=== PATIENT | female | born 1950 | race Caucasian/White ===

== ENCOUNTER → 2018-10-01 | Outpatient (CLI) | payer OTHER | LOC: M.LAB 05:02 | DX: Z01.812 Encounter for preprocedural laboratory examination (principal); Z79.899 Other long term (current) drug therapy ==

== ENCOUNTER 2019-07-11 10:39 | Inpatient (IN) | payer OTHER ==
[~2019-07-11] VITALS: Ht 165.1 cm; Wt 56.7 kg
[2019-07-11 10:44] VITALS: BP 120/66
[2019-07-11] MEDS ORDERED: MICROZIDE12.5 MG PO (10:50)
[2019-07-11] MEDS ORDERED: LISINOPRIL2.5 MG PO ×2 (10:50→15:54)
[2019-07-11] MEDS ORDERED: SIMVASTATIN80 MG PO (10:50)
[2019-07-11] MEDS ORDERED: SERTRALINE HCL100 MG PO (10:50)
[2019-07-11 11:03] LABS: ABSOLUTE EOSINOPHILS 0.6 thou/uL (0.0-0.7); ABSOLUTE LYMPHOCYTES 1.4 thou/uL (0.8-5.3); ABSOLUTE MONOCYTES 0.9 thou/uL (0.0-1.2); ABSOLUTE NEUTROPHILS 5.8 thou/uL (1.6-8.1); BASOPHILS 0.3 %; EOSINOPHILS 6.5 %; HEMATOCRIT 38.2 % (37.0-47.0); HEMOGLOBIN 13.1 gm/dL (12.0-15.0); LYMPHOCYTES 16.5 %; MCH 32.7 pg (26.0-34.0); MCHC 34.3 g/dL (28.0-37.0); MCV 95.3 fL (80.0-100.0); MONOCYTES 9.8 %; MPV 6.8 fl. (7.2-11.1); NUCLEATED RBCS 0 /100WBC; PLATELET COUNT* 262 thou/uL (150-400); POLYS 66.9 %; RDW-CV 13.7 % (10.5-14.5); WBC 8.7 thou/uL (4.0-11.0)
[2019-07-11 11:13] LABS: CALCIUM 8.7 mg/dL (8.5-10.1); CREATININE 1.2 mg/dL (0.6-1.3); POTASSIUM 3.5 mmol/L (3.5-5.1)
[2019-07-11 11:14] LABS: APTT 25.2 Seconds (25.0-31.3); INR 0.9; PROTIME 9.4 Seconds (9.20-11.50)
[2019-07-11 11:27] LABS: ALBUMIN 3.3 g/dL (3.4-5.0); CK-MB MASS 20.1 ng/mL (<0.5-3.6); MAGNESIUM 1.6 mg/dL (1.8-2.4); TOTAL BILIRUBIN 0.1 mg/dL (<0.1-1.0); TOTAL PROTEIN 7.1 g/dL (6.4-8.2)
[2019-07-11 13:25] VITALS: BP 119/70
[2019-07-11 13:50] VITALS: BP 109/80
[2019-07-11 14:25] LABS: CHOLESTEROL 160 mg/dL (<200); HDL CHOLESTEROL 60 mg/dL (>40); LDL CHOLESTEROL 88 mg/dL (<100); TC:HDL 2.7 Ratio (Not establshd); TRIGLYCERIDE 63 mg/dL (<150); VLDL 13 mg/dL (<40)
[2019-07-11 14:27] LABS: SERUM ASSESSMENT Clear
--- NOTE | 2019-07-11 14:30 | NUR ---
RECEIVED REPORT FROM ALEXUS IN ER. PT ARRIVED TO TELE FLOOR AROUND 1350. PT A&O X4. VSS. SODIUM METHYLATE OPERATOR PLACED TRACING SR. ADMISSION ASSESSMENT, EDUCATION AND HISTORY COMPLETED CHARTED. PT ORIENTED TO ROOM, BED AND CALL LIGHT - PT COMMUNICATES UNDERSTANDING. DR MIXON IN ROOM TALKING WITH PT DURING ADMISSION ABOUT NEED FOR CARDIAC CATH. PT AGREEABLE. CONSENT OBTAINED AND SIGNED. MEDICATIONS RECONCILED. PT DENIES PAIN AT THIS TIME. PT LEFT WITH CAR MANAGER NURSES TO GO DOWN TO CAR MANAGER AROUND 1430.
[2019-07-11] MEDS ORDERED: HYDROCHLOROTHIA25 M1 PO (15:55)
[2019-07-11] MEDS ORDERED: LIPITOR 20 MG T20 M1 PO (15:55)
[2019-07-11] MEDS ORDERED: DELTA D310 MCG PO (15:57)
[2019-07-11] MEDS ORDERED: MAGNESIUM250 M1 PO (15:58)
[2019-07-11] MEDS ORDERED: KLOR-CON M2020 MEQ PO (15:59)
[2019-07-11] MEDS ORDERED: EXCEDRIN CAPLE1 EACH PO (15:59)
[2019-07-11] MEDS ORDERED: NEXIUM20 MG PO (16:00)
[2019-07-11 17:14] LABS: BE -12.3 mmol/L (-2 to +3); PO2 82.6 mmHg (75.0-100.0)
[2019-07-11 17:16] LABS: PCO2 66.4 mmHg (35.0-45.0); pH 7.061 (7.340-7.450)
--- NOTE | 2019-07-11 19:57 | EKG ---
[place] [address] ELECTROCARDIOGRAM REPORT Name: PEDERSONCAROL Deedee Room: [address] ADM IN .R.#: [id number] Admission: 07/11/19 Attend Phys: Chao Partida MD Discharge: Date of : 50 Report #: [id number] THIS REPORT FOR: //name// [facility] ED Test Date: 2019-07-11 Test Time: 10:47:58 Pat Name: CAROL PEDERSON Department: Room: [facility] Gender: F Special Events Fundraiser: : 1950 Requested By: Brody Mobley Order Number: [id number] MD: Sharath Schumacher Measurements Intervals [place] Rate: 86 P: 59 MN: 136 QRS: 48 QRSD: 89 T: 181 QT: 392 QTc: 469 Interpretive Statements Sinus rhythm Probable left atrial enlargement Consider RVH or PMI w/ secondary repol abnrm Repol abnrm suggests ischemia, lateral leads Baseline wander in lead(s) I,III,aVL Compared to ECG 07/16/2008 14:44:04 Myocardial infarct finding now present Early repolarization now present Possible ischemia now present Electronically Signed On 07-11-2019 19:56:51 ROTARY DRILL OPERATOR by Sharath Schumacher [email or web address] <ELECTRONICALLY SIGNED> By: Sharath Schumacher MD, FAC 07/11/191955 46 46 Sharath Schumacher MD, FAC /EPI
--- NOTE | 2019-07-11 19:58 | NUR ---
PT ARRIVED TO TELE FLOOR FROM SERVER DEVELOPER AROUND 1800. RECEIVED REPORT FROM JAYMIE - PT WAS CODED AND AT 1739. PAPERWORK FILLED OUT WITH CHARGE NURSE WALTER AND PLACED IN CHART. FAMILY AT BEDSIDE FOR A TIME. FAMILY TO CALL NURSING WITH HOME INFORMATION THIS EVENING. [facility] CALLED - PT CANDIDATE FOR ORGAN DONATION. PT PLACED ON ICE AT 1830. BELONGINGS SENT HOME WITH FAMILY. PT'S TEETH REMAIN WITH PT.
--- NOTE | 2019-07-12 00:50 | NUR ---
BODY HAS BEEN ON ICE AND COOLING BLANKET, HOB ELEVATED 30 DEGREES. DENTURES PLACED IN MOUTH EARLIER. ID VERIFIED. REMOVED BY TRANSPORT COMPANY FOR TISSUE REMOVAL.
[2019-07-12 00:56] VITALS: BP 109/80
--- NOTE | 2019-07-12 10:32 | CARD ---
[address] [address] CARDIAC CATH REPORT Name: CAROL PEDERSON Room: [address]#: [id number] Admission: 07/11/19 Attend Phys: Chao Partida MD Discharge: 07/12/19 Date of : 50 Report #: [id number] THIS REPORT FOR: //name// APPROVED REPORT Study performed: 07/11/2019 14:36:29 Patient Details Patient Status: In-Patient Room #: 203 The patient is a 69 year-old female Event Personnel Paco Schmitt RTR Monitor, Joanne Darden RN RN, Shanna Hannon RN RN, Aurelia Saucedo RTR Bri Drummond John Paper Cutter Operator Procedures Performed Left Heart Cath Coronaries, Bypass Grafts 1602119 LHCCORCABG Atherectomy w/wo Plasty Sgl RCA [id number] ATHSINGLE DANNY Place w/wo Plasty Single LAD 543099 Indication Non-STEMI Risk Factors Peripheral Vascular Disease, Hypercholesterolemia, Hypertension Previous Procedures/Diagnoses Previous CABGPrevious PCI Admission/Lab Medications/Medications given during procedure Angiomax bolus and infusion Procedure Narrative The patient was brought urgently to the Cardiac Catheterization Laboratory and was prepped and draped in a sterile manner. The right femoral was infiltrated with 2% Lidocaine subcutaneous anesthesia. A 6fr Ultimum Sheath sheath was inserted into the right femoral artery. Coronary angiography was performed using coronary diagnostic catheters. The right coronary system was accessed and visualized with a Diagnostic 6Fr JR4 catheter. The left coronary system was accessed and visualized with a Diagnostic 6Fr JL4 catheter. The left ventricle was accessed and visualized with a Diagnostic 6Fr Pigtail catheter. Left ventricular/Aortic Valve gradient assessed via catheter pullback. Left ventric[place] [address] CARDIAC CATH REPORT Name: CAROL PEDERSON Room: [address]#: [id number] Admission: 07/11/19 Attend Phys: Chao Partida MD Discharge: 07/12/19 Date of : 50 Report #: [id number] projection. Intraoperative Conscious Sedation Fentanyl 25 mcg Versed 2 mg Fluoro Time: 34.8 minutes Dose: DAP 275206 cGycm2 2421.94 mGy Contrast Type and Amount: Visipaque 360 ml [place] Artery Percent Stenosis #1 atretic SOLORZANO graft #2 patent saphenous vein graft to a small marginal branch of the circumflex with sequential 90% proximalmid graft stenosis Diagnostic Cath Left Main 40% distal narrowing LAD 90% Calcified proximalmid LAD stenosis Circumflex 100% proximal occlusion Right Coronary 90% heavily calcified mid right coronary stenosis with 80% stenosis of a prominent posterolateral branch of the distal right coronary artery Left Ventriculography The left ventricle is normal in size with contractility. The left ventricular ejection fraction is estimated to be 45%. Left ventricular wall motion abnormalities are present. There is no mitral insufficiency. Anterolateral hypokinesis is noted Hemodynamics The aortic pressure is 88/43 mmHg with a mean of 57 mmHg. The left ventricular pressure is 83/-1 mmHg with a mean of mmHg. The left ventricular end diastolic pressure is 4 mmHg. There was no gradient across the aortic valve upon pullback. PCI Technique Lesion Anticoagulation was achieved with Angiomax. Percutaneous coronary intervention was performed on the mid right coronary artery. The lesion stenosis prior to intervention was 90% with YOVANNY 3 flow. A 6F JR 4.0 Guide Catheter was used to engage the ostium. A IG: ProwaterFlex 180CM Interventional Guidewire was used to cross the lesion. BALLOON DILATION A Balloon catheter Trek RX 2.5 X 12 [place] [address] CARDIAC CATH REPORT Name: CAROL PEDERSON Room: [address]#: [id number] Admission: 07/11/19 Attend Phys: Chao Partida MD Discharge: 07/12/19 Date of : 50 Report #: [id number] 14.00atm for 17seconds. Additional Inflation: 18.00atm for 20seconds. Additional Inflation: 24-28atm for 20seconds. 2.0 x 10 mm angiosculpt inflated to 20-22 vaishali Final angiography reveals 80 % stenosis with YOVANNY 3 flow. COMMENTS I was unable to successfully dilate the heavily calcified mid right coronary stenosis. The patient developed local intimal disruption distal to the heavily calcified stenosis suggesting a dissection plane. At this point, I felt it was not lopez to proceed with orbital or rotational atherectomy . PCI Technique Lesion 2 Percutaneous Coronary Intervention was performed on the proxmid left anterior descending. The lesion stenosis prior to intervention was 90% with YOVANNY 3 flow. A 6F XB LAD 3.5 Guide Catheter was used to engage the ostium. A IG: BMW 190cm Interventional Guidewire was used to cross the lesion. Balloon Dilation A Balloon catheter [place] Trek RX 2.5x8, was inserted and inflated up to 12.00, 12atm for 30seconds. Additional Inflation: 14atm for 11seconds. Additional Inflation: 18atm for 14seconds. 2.5 x 6 mm angiosculpt balloon inflated to 12 vaishali Stent Deployment A drug-eluting stent [place] RX Stent 2.25X8mm,2.5x15 [place] was inserted and inflated up to 12.00, 12atm for 15seconds. Final angiography reveals 10 % stenosis with YOVANNY 3 flow. Comments As I was deploying stents in the LAD, the patient developed pleuritic chest pain and hypotension. This was initially responsive to dopamine infusion at a moderate rate but the patient's hypotension progressed. She became unresponsive and we then proceeded with administration of IV fluids multiple doses of epinephrine as well as intravenous sodium bicarbonate and Everardo-Synephrine infusion to maintain systemic pressure. She underwent a difficult intubation to control her airway. She ultimately developed electromechanical dissociation. Emergent echo revealed no pericardial effusion but diffuse hypokinesis of LV wall motion. We were unable to achieve hemodynamic stability allowing me to redefine the right coronary artery which I suspected to be occluded at the mid vessel site. The patient ultimately after [facility] [address] [place] [address] CARDIAC CATH REPORT Name: CAROL PEDERSON Room: [address]#: [id number] Admission: 07/11/19 Attend Phys: Chao Partida MD Discharge: 07/12/19 Date of : 50 Report #: [id number] 46 minutes of resuscitative effort. Conclusion #1 severe multivessel coronary disease characterized by the following: A 90% calcified proximalmid LAD stenosis B 100% proximal circumflex occlusion C 90% heavily calcified mid right coronary stenosis with 80% calcified posterolateral branch stenosis #2 graft study characterized by the following: A atretic SOLORZANO graft B patent vein graft to a small marginal branch of the circumflex with sequential 90% stenoses of the proximalmidportion of the graft #3 modest impairment in global function, estimate ejection fraction being 45% #4 systemic hypotension throughout the study #5 percutaneous transluminal coronary angioplasty and atherotomy/atherectomy with an Angiosculpt balloon at the site of 90% mid right coronary stenosis with 80% residual narrowing and local intimal disruption distal to that point #6 percutaneous coronary intervention with angioplasty, atherotomy/atherectomy, and deployment of sequential drug-eluting stents in the proximalmid LAD with 10% residual narrowing #7 cardiopulmonary arrest during the procedure with complex resuscitative efforts undertaken as outlined earlier with the patient ultimately expiring in the Claims Adjuster Crop after 46 minute resuscitative effort. <ELECTRONICALLY SIGNED> By: German Gregory MD, FACC 07/12/19 1032 1032German Gregory MD, FACC /INF
== END 2019-07-12 00:55 | DRG 246 ==
LOC: M.ERS 10:39 → M.TBA-ER 11:35 → M.2W 11:35
PROVIDERS: Family Medicine; Registered Nurse; ADMIT Internal Medicine
PROC: 027035Z Dilation of Coronary Artery, One Artery with Two Drug-eluting Intraluminal Devices, Percutaneous Approach (ICD-10-PCS; principal; 2019-07-11)
PROC: 02703ZZ Dilation of Coronary Artery, One Artery, Percutaneous Approach (ICD-10-PCS; principal; 2019-07-11)
PROC: B218YZZ Fluoroscopy of Left Internal Mammary Bypass Graft using Other Contrast (ICD-10-PCS; principal; 2019-07-11)
PROC: B211YZZ Fluoroscopy of Multiple Coronary Arteries using Other Contrast (ICD-10-PCS; principal; 2019-07-11)
PROC: 5A12012 Performance of Cardiac Output, Single, Manual (ICD-10-PCS; principal; 2019-07-11)
PROC: 4A023N7 Measurement of Cardiac Sampling and Pressure, Left Heart, Percutaneous Approach (ICD-10-PCS; principal; 2019-07-11)
PROC: B213YZZ Fluoroscopy of Multiple Coronary Artery Bypass Grafts using Other Contrast (ICD-10-PCS; principal; 2019-07-11)
PROC: B215YZZ Fluoroscopy of Left Heart using Other Contrast (ICD-10-PCS; principal; 2019-07-11)
PROC: 02C13ZZ Extirpation of Matter from Coronary Artery, Two Arteries, Percutaneous Approach (ICD-10-PCS; principal; 2019-07-11)
DX: I21.4 Non-ST elevation (NSTEMI) myocardial infarction (principal); J96.20 Acute and chronic respiratory failure, unspecified whether with hypoxia or hypercapnia; T82.857A Stenosis of other cardiac prosthetic devices, implants and grafts, initial encounter; I10 Essential (primary) hypertension; E78.5 Hyperlipidemia, unspecified; I25.2 Old myocardial infarction; I25.10 Atherosclerotic heart disease of native coronary artery without angina pectoris; I46.9 Cardiac arrest, cause unspecified; F17.210 Nicotine dependence, cigarettes, uncomplicated; I95.9 Hypotension, unspecified; Z95.1 Presence of aortocoronary bypass graft; Z88.1 Allergy status to other antibiotic agents; Z79.899 Other long term (current) drug therapy; Y71.3 Surgical instruments, materials and cardiovascular devices (including sutures) associated with adverse incidents; Y92.89 Other specified places as the place of occurrence of the external cause; Z88.2 Allergy status to sulfonamides